=== PATIENT | female | born 2000 | race Caucasian/White ===

== ENCOUNTER 2021-01-22 21:55 | Outpatient (CLI) | payer OTHER ==
[~2021-01-22 21:55] MED LIST: OMNICEF 300 MG300 MG PO; PHENERGAN 12.12.5 M1 PO
[2021-01-30] MEDS ORDERED: IBUPROFEN800 MG PO (03:52)
[2021-01-30] MEDS ORDERED: DOCUSATE SODIU100 MG PO (03:52)
[2021-01-30] MEDS ORDERED: TYLENOL EXTRA500 MG PO (03:52)
== END 2021-01-23 01:28 | disposition home or self-care (01) ==
LOC: GENOP 21:55
DX: O47.1 False labor at or after 37 completed weeks of gestation (principal); Z3A.38 38 weeks gestation of pregnancy
CPT/HCPCS: 81001; G0463

== ENCOUNTER 2021-01-29 10:33 | Inpatient (IN) | payer OTHER ==
[~2021-01-29] VITALS: Ht 177.8 cm; Wt 95.7 kg
[2021-01-29 11:25] LABS: HEMOGLOBIN 10.9 gm/dl (12.3-15.3); RED BLOOD COUNT 4.66 M/UL (4.00-5.10); WHITE BLOOD COUNT 10.4 K/UL (4.5-11.0)
[2021-01-29 16:49] LABS: BUN/CREATININE RATIO 14 (0-10)
[2021-01-29 19:16] LABS: HEMOGLOBIN 11.5 gm/dl (12.3-15.3); RED BLOOD COUNT 4.59 M/UL (4.00-5.10); WHITE BLOOD COUNT 11.3 K/UL (4.5-11.0)
[2021-01-29 19:33] LABS: BUN/CREATININE RATIO 14 (0-10)
[2021-01-30] MEDS ORDERED: TYLENOL EXTRA500 MG PO (03:52)
[2021-01-30] MEDS ORDERED: IBUPROFEN800 MG PO (03:52)
[2021-01-30] MEDS ORDERED: DOCUSATE SODIU100 MG PO (03:52)
[2021-01-30 06:07] LABS: HEMOGLOBIN 11.6 gm/dl (12.3-15.3); RED BLOOD COUNT 4.59 M/UL (4.00-5.10)
[2021-01-30 06:14] LABS: WHITE BLOOD COUNT 17.1 K/UL (4.5-11.0)
[2021-01-30 06:22] LABS: BUN/CREATININE RATIO 17 (0-10)
[2021-01-30 16:08] LABS: HEMOGLOBIN 10.9 gm/dl (12.3-15.3); RED BLOOD COUNT 4.33 M/UL (4.00-5.10); WHITE BLOOD COUNT 16.3 K/UL (4.5-11.0)
[2021-01-30 16:27] LABS: BUN/CREATININE RATIO 14 (0-10)
[2021-01-31] MEDS ORDERED: LABETALOL HCL200 MG PO (13:08)
== END 2021-01-31 20:09 | disposition home or self-care (01) | DRG 806 ==
LOC: GENOP 10:33 → OB 10:40
PROVIDERS: ADMIT Obstetrics & Gynecology
PROC: 4A1HXCZ Monitoring of Products of Conception, Cardiac Rate, External Approach (ICD-10-PCS; 2021-01-29)
PROC: 10E0XZZ Delivery of Products of Conception, External Approach (ICD-10-PCS; principal; 2021-01-30)
PROC: 10907ZC Drainage of Amniotic Fluid, Therapeutic from Products of Conception, Via Natural or Artificial Opening (ICD-10-PCS; 2021-01-30)
PROC: 3E033VJ Introduction of Other Hormone into Peripheral Vein, Percutaneous Approach (ICD-10-PCS; 2021-01-30)
DX: O14.14 Severe pre-eclampsia complicating childbirth (principal); N17.9 Acute kidney failure, unspecified; Z37.0 Single live birth; Z3A.39 39 weeks gestation of pregnancy; Z20.822 Contact with and (suspected) exposure to COVID-19; O99.892 Other specified diseases and conditions complicating childbirth; O76 Abnormality in fetal heart rate and rhythm complicating labor and delivery
CPT/HCPCS: 36415; 51702; 80053; 81001; 82570; 82800; 83615; 83735; 84156; 84550; 85025; 85461; 86850; 86900; 86901; 90707; 90715; 96372; C9113; J0595; J2405; J2590; J2790; J3475; J7120; U0002

== ENCOUNTER 2021-03-24 16:02 | Emergency (ER) | payer OTHER ==
[~2021-03-24 16:02] MED LIST changes: +DOCUSATE SODIU100 MG PO; +IBUPROFEN800 MG PO; +LABETALOL HCL200 MG PO; +TYLENOL EXTRA500 MG PO
== END 2021-03-24 19:37 | disposition left against medical advice (07) ==
LOC: ER1 16:02
DX: J02.9 Acute pharyngitis, unspecified (principal); R05 Cough; R52 Pain, unspecified; Z20.822 Contact with and (suspected) exposure to COVID-19
CPT/HCPCS: U0002

== ENCOUNTER 2021-05-20 15:53 | Emergency (ER) | payer OTHER ==
[2021-05-20 17:01] LABS: HEMOGLOBIN 12.2 gm/dl (12.3-15.3); RED BLOOD COUNT 4.76 M/UL (4.00-5.10); WHITE BLOOD COUNT 9.5 K/UL (4.5-11.0)
[2021-05-20 17:21] LABS: BUN/CREATININE RATIO 22 (0-10)
[2021-05-20] MEDS ORDERED: MACROBID 100 M100 MG PO (18:16)
[2021-05-20] MEDS ORDERED: HYDROCODON-ACE1 EAC1 PO (18:25)
== END 2021-05-20 18:34 | disposition home or self-care (01) ==
LOC: ER1 15:53
PROVIDERS: Emergency Medicine
DX: N39.0 Urinary tract infection, site not specified (principal); K80.50 Calculus of bile duct without cholangitis or cholecystitis without obstruction; Z20.822 Contact with and (suspected) exposure to COVID-19
CPT/HCPCS: 80053; 81001; 83690; 84703; 85025; 99284; U0003

== ENCOUNTER → 2021-06-13 | Outpatient (CLI) | payer OTHER ==
[~2021-06-13] MED LIST changes: +HYDROCODON-ACE1 EAC1 PO; +MACROBID 100 M100 MG PO
== END ==
LOC: KOH-I 08:45
DX: R10.9 Unspecified abdominal pain (principal)
CPT/HCPCS: 76705

== ENCOUNTER → 2021-07-12 | Outpatient (CLI) | payer BC, OTHER | LOC: NM 13:00 | DX: R10.9 Unspecified abdominal pain (principal) | CPT/HCPCS: 78226; A9537 ==